=== PATIENT | male | born 1960 | race Caucasian/White ===

== ENCOUNTER 2018-06-15 23:40 | Emergency (ER) | payer OTHER ==
[2018-06-15] MEDS ORDERED: NS 1,000 ML IV ONE ×2 (23:46→23:55)
--- NOTE | 2018-06-15 23:46 | EDPHY ---
H & P Stated Complaint: COLONOSCOPY TODAY,SYNCOPE TONIGHT, HIT RIBS ON TUB Source: Patient - Personal History Current Tetanus Diphtheria and Acellular Pertussis (TDAP): Yes - Medical/Surgical History Hx Asthma: No Hx Chronic Respiratory Disease: No Hx Diabetes: No Hx Cardiac Disease: No Hx Renal Disease: No Hx Cirrhosis: No Hx Alcoholism: No Hx HIV/AIDS: No Hx Splenectomy or Spleen Trauma: No Other PMH: toe surgery, NOT WELL X 6 WEEKS STARTING 04/22 - Social History Smoking Status: Never smoked Time Seen by Provider: 06/15/18 23:46 HPI/ROS: HPI CHIEF COMPLAINT: Syncope. Left rib pain. HISTORY OF PRESENT ILLNESS: This patient is a 58-year-old male, presents emergency room after he had a syncopal episode this evening. Patient states he had a colonoscopy earlier in the day. Prior to having his colonoscopy prep he was on a cleansing diet for 6 days liquid diet. He then had his colonoscopy today, which rather went uneventful. He arrived home and did well. He states he a small meal. This evening he got up to go use the bathroom and he had diarrhea. States rather large amount. Was on the toilet he got up off the toilet and then had a syncopal episode as he stood up. States he felt very lightheaded. He landed on his left ribs on the bathtub edge. His main complaint now is left lateral rib pain. He does complain of 6/10 left lateral rib pain. I did offer him acute pain control upon arrival here however he is declining any narcotics. He states he has a history of narcotic dependency and does not want any. This was a screening colonoscopy. Past Medical History: Denies significant medical history Past Surgical History: No recent surgery colonoscopy today. Social History: Denies drugs alcohol tobacco. Family History: Noncontributory ROS REVIEW OF SYSTEMS: 10 Systems were reviewed and negative with the exception of the elements mentioned in the history of present illness. Exam Constitutional triage nursing summary reviewed, vital signs reviewed, awake/ alert. GCS 15, alert or x4 Eyes normal conjunctivae and sclera, EOMI, PERRLA. HENT normal inspection, atraumatic, moist mucus membranes, no epistaxis, neck supple/ no meningismus, no raccoon eyes. Respiratory clear to auscultation bilaterally, normal breath sounds, no respiratory distress, no wheezing. Cardiovascular chest wall mild tender palpation over the left lateral ribs, no crepitus, no flail chest, rate normal, regular rhythm, no murmur, no edema, distal pulses normal. Gastrointestinal soft, non-tender, no rebound, no guarding, normal bowel sounds, no distension, no pulsatile mass. Genitourinary no CVA tenderness. Musculoskeletal no midline vertebral tenderness, full range of motion, no calf swelling, no tenderness of extremities, no meningismus, good pulses, neurovascularly intact. Skin pink, warm, & dry, no rash, skin atraumatic. Neurologic awake, alert and oriented x 3, AAOx3, moves all 4 extremities equally, motor intact, sensory intact, CN II-XII intact, normal cerebellar, normal vision, normal speech. Psychiatric normal mood/affect. Heme/Lymph/Immune no lymphadenopathy. 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 Re-evaluation: EKG interpretation by me on record in [employer] system. Impression time of EKG 1202AM: Sinus rhythm rate of 60 without any signs of acute ischemia no signs of cardiac arrhythmia or acute abnormality. No signs of Brugada or WPW. Intervals are appropriate. X-ray of the chest visualized by myself. I do not appreciate a pneumothorax, or significant rib fractures. However at 12:20 a.m. Re-evaluation of the patient he still has rather severe left-sided rib pain. Plan for patient CT scan chest without contrast to make sure he does not have multiple rib fractures very small pneumothorax I am unable to visualize on the chest x-ray. The patient has agreed for this as this is been discussed with him. Agrees for CT scan. Troponin negative. CT scan chest without contrast for left chest wall trauma negative for acute traumatic injury no evidence of rib fractures or pneumothorax this was faxed to me by direct Radiology 12:59 a.m.. 0352: Patient re-evaluated this time resting comfortably without any complaints. He states he feels much better after 2 L of normal saline fluid bolus, as well as Tylenol and Toradol for pain control. His CT scan has been reviewed for left-sided lateral rib pain after falling on the edge of the tub. There is no evidence of fractures on the CT scan. Patient ambulated well multiple times to the bathroom in feels well I did offer from hospital admission for observation today however he has declined this and wants to go home. The patient presented to the emergency room after he had a syncopal episode after getting up off the toilet. The patient reports that he had diarrhea after his colonoscopy got up to use the bathroom in the middle the night, had a large diarrheal movement nonbloody, and stood up from the toilet got lightheaded and then had a syncopal episode. I Believe the patient had a syncopal episode due to dehydration. As he states that he prep for his colonoscopy, additionally he was on a 6 day liquid diet prior to this cleansing himself. The patient denies any chest pain or shortness of breath. He denies dizziness, headache nausea or vomiting at this time. He would like to go home. I do encourage him to rest the next 24 hr, stay well-hydrated. If he has another syncopal episode develops chest pain or shortness of breath or is not doing well he should return to the emergency room this is been discussed in length with him he understands and is comfortable this plan. EKG interpretation by me on record in [employer] system. Impression time of EKG 4 6:00 a.m. This is a repeat EKG sinus rhythm rate of 67 without any signs of acute ischemia or cardiac arrhythmia. 2nd troponin performed 0.00. Patient feels well and has no chest pain or shortness of breath. Ambulatory well throughout the emergency room without any lightheadedness. Again return precautions discussed. (Harry Jo) Constitutional: Initial Vital Signs Temperature (C) 36.5 C 06/15/18 23:43 Heart Rate 87 06/15/18 23:43 Respiratory Rate 18 06/15/18 23:43 Blood Pressure 103/75 06/15/18 23:43 O2 Sat (%) 94 06/15/18 23:43 O2 Delivery Mode Room Air Allergies/Adverse Reactions: No Known Allergies Allergy (Unverified 10/12/11 12:42) Home Medications: Medication Instructions Recorded Thyroid,Pork 06/19/15 Albuterol 06/15/18 Medical Decision Making - Diagnostics Imaging Results: Imaging Impressions Chest X-Ray 06/15/18 23:55 Impression: There is no acute abnormality identified. At Dr. Jo's request, a chest CT scan is also been requested and was subsequently performed and separately dictated. Other Provider: Called by Dr. Nicolas at least 1 nondisplaced rib fracture at 1041; discussed with on phone at this time, . Left 7th rib, no change in management except warned about duration of healing/ symptoms. (Valentin Todd) - Data Points Laboratory Results: Laboratory Results 06/15/18 00:00 06/15/18 00:00 06/16/18 06/16/18 06/15/18 04:11 00:05 00:00 WBC RBC Hgb Hct MCV MCH MCHC RDW Plt Count MPV Neut % (Auto) Lymph % (Auto) [place] % (Auto) Eos % (Auto) Baso % (Auto) Nucleat RBC Rel Count Absolute Neuts (auto) Absolute Lymphs (auto) Absolute Monos (auto) Absolute Eos (auto) Absolute Basos (auto) Absolute Nucleated RBC Immature Gran % Immature Gran # Sodium 137 mEq/L mEq/L (135-145) Potassium 3.9 mEq/L mEq/L (3.5-5.2) Chloride 106 mEq/L mEq/L (97-110) Carbon Dioxide 21 mEq/l L mEq/l (22-31) Anion Gap 10 mEq/L mEq/L (6-14) BUN 18 mg/dL mg/dL (7-23) Creatinine 0.9 mg/dL mg/dL (0.7-1.3) Estimated GFR > 60 Glucose 114 mg/dL H mg/dL (70-100) Calcium 9.3 mg/dL mg/dL (8.5-10.4) Magnesium 2.0 mg/dL mg/dL (1.6-2.3) POC Troponin I 0.00 ng/mL ng/mL 0.00 ng/mL ng/mL (0.00-0.08) (0.00-0.08) 06/15/18 00:00 WBC 11.08 10^3/uL H 10^3/uL (3.80-9.50) RBC 4.96 10^6/uL 10^6/uL (4.40-6.38) Hgb 16.5 g/dL g/dL (13.7-17.5) Hct 45.9 % % (40.0-51.0) MCV 92.5 fL fL (81.5-99.8) MCH 33.3 pg pg (27.9-34.1) MCHC 35.9 g/dL g/dL (32.4-36.7) RDW 12.7 % % (11.5-15.2) Plt Count 181 10^3/uL 10^3/uL (150-400) MPV 10.5 fL fL (8.7-11.7) Neut % (Auto) 54.3 % % (39.3-74.2) Lymph % (Auto) 36.0 % % (15.0-45.0) [place] % (Auto) 8.0 % % (4.5-13.0) Eos % (Auto) 0.7 % % (0.6-7.6) Baso % (Auto) 0.5 % % (0.3-1.7) Nucleat RBC Rel Count 0.0 % % (0.0-0.2) Absolute Neuts (auto) 6.01 10^3/uL 10^3/uL (1.70-6.50) Absolute Lymphs (auto) 3.99 10^3/uL H 10^3/uL (1.00-3.00) Absolute Monos (auto) 0.89 10^3/uL H 10^3/uL (0.30-0.80) Absolute Eos (auto) 0.08 10^3/uL 10^3/uL (0.03-0.40) Absolute Basos (auto) 0.06 10^3/uL 10^3/uL (0.02-0.10) Absolute Nucleated RBC 0.00 10^3/uL 10^3/uL (0-0.01) Immature Gran % 0.5 % % (0.0-1.1) Immature Gran # 0.05 10^3/uL 10^3/uL (0.00-0.10) Sodium Potassium Chloride Carbon Dioxide Anion Gap BUN Creatinine Estimated GFR Glucose Calcium Magnesium POC Troponin I Medications Given: Discontinued Medications Acetaminophen (Tylenol) 1,000 mg PO EDNOW ONE Stop: 06/16/18 00:00 Last Admin: 06/16/18 00:19 Dose: 1,000 mg Sodium Chloride (Ns) 1,000 mls @ 0 mls/hr IV EDNOW ONE; Wide Open PRN Reason: Protocol Stop: 06/15/18 23:47 Last Admin: 06/16/18 00:04 Dose: 1,000 mls Sodium Chloride (Ns) 1,000 mls @ 0 mls/hr IV ONCE ONE PRN Reason: Wide Open Stop: 06/15/18 23:56 Last Admin: 06/16/18 00:20 Dose: 1,000 mls Ketorolac Tromethamine (Toradol) 15 mg IVP EDNOW ONE Stop: 06/16/18 00:46 Last Admin: 06/16/18 00:49 Dose: 15 mg Point of Care Test Results: Chemistry 06/16/18 06/16/18 04:11 00:05 POC Troponin I 0.00 ng/mL ng/mL 0.00 ng/mL ng/mL (0.00-0.08) (0.00-0.08) Departure - Departure Disposition: Home, Routine, Self-Care Clinical Impression: Syncope, Dehydration Condition: Good Instructions: Dehydration (ED), Syncope (ED), Contusion in Adults (ED) Additional Instructions: 1. Rest today drink lots of fluids stay well-hydrated 2. Return to the emergency room if you develop worsening symptoms including passing out, worsening pain or not doing well 3. Please stay well-hydrated Referrals: Patient,NotPresent [Unknown] - As per Instructions [facility],. [Clinic] - As per Instructions Stand Alone Forms: Work Excuse
[2018-06-15] MEDS ORDERED: ACETAMINOPHEN 500 MG TAB PO ONE (23:59)
[2018-06-16 00:39] LABS: PLATELET COUNT 181 10^3/uL (150-400)
[2018-06-16] MEDS ORDERED: KETOROLAC 15 MG/1 ML SDV IVP ONE (00:45)
[2018-06-16 04:46] VITALS: BP 110/72
--- NOTE | 2018-06-16 06:56 | CPEKG ---
Test Reason : OPEN Blood Pressure : / mmHG Vent. Rate : 067 BPM Atrial Rate : 067 BPM P-R Int : 178 ms QRS Dur : 108 ms QT Int : 407 ms P-R-T Axes : 047 003 030 degrees QTc Int : 430 ms Sinus rhythm Confirmed by Harry Jo ([id number]) on 06/16/2018 6:55:55 AM Referred By: Harry Jo Confirmed By:Harry Jo
--- NOTE | 2018-06-16 06:56 | CPEKG ---
Test Reason : OPEN Blood Pressure : / mmHG Vent. Rate : 060 BPM Atrial Rate : 060 BPM P-R Int : 176 ms QRS Dur : 107 ms QT Int : 404 ms P-R-T Axes : 044 026 035 degrees QTc Int : 404 ms Sinus rhythm Confirmed by Harry Jo ([id number]) on 06/16/2018 6:55:56 AM Referred By: Harry Jo Confirmed By:Harry Jo
== END 2018-06-16 04:46 | disposition home or self-care (01) ==
DX: R55 Syncope and collapse (principal); R07.81 Pleurodynia; E86.0 Dehydration; W18.2XXA Fall in (into) shower or empty bathtub, initial encounter; Y92.002 Bathroom of unspecified non-institutional (private) residence as the place of occurrence of the external cause
CPT/HCPCS: 84484-ER; 96374; J1885